=== PATIENT | female | born 1940 | race Caucasian/White ===

== ENCOUNTER → 2020-10-05 | Outpatient (CLI) | payer OTHER ==
[~2020-10-05] MED LIST: ALTACE 1.25 M1.25 M1 PO; ATORVASTATIN CA20 MG
== END ==
LOC: M.RAD 12:54
PROVIDERS: ATTEND Internal Medicine Hematology & Oncology
DX: Z12.31 Encounter for screening mammogram for malignant neoplasm of breast (principal)